=== PATIENT | male | born 1995 | race Caucasian/White ===

== ENCOUNTER 2021-01-20 10:58 | Emergency (ER) | payer BC ==
[2021-01-20] MEDS ORDERED: Lidocaine 1% w/Epinephrine 1:100K 20 ML VIAL ONE (11:14)
[2021-01-20] MEDS ORDERED: Boostrix 0.5 ML (Tdap) VIAL ONE (11:21)
[2021-01-20] MEDS ORDERED: Bacitracin 1 PK ONE (11:53)
== END 2021-01-20 12:15 | disposition home or self-care (01) ==
LOC: ERS 10:58
DX: S51.812A Laceration without foreign body of left forearm, initial encounter (principal); Z79.899 Other long term (current) drug therapy; W26.0XXA Contact with knife, initial encounter
CPT/HCPCS: 12002; 90471; 90715